=== PATIENT | male | born 1955 ===

== ENCOUNTER 2017-03-11 17:56 | Observation (INO) | payer OTHER ==
[2017-03-11] MEDS ORDERED: Labetalol 5mg/ml (4ml) IVP STA (18:05)
[2017-03-11] MEDS ORDERED: Labetalol 5mg/ml (4ml) ONE (18:10)
[2017-03-11 18:20] LABS: BASO % 0.4 % (0.0-2.0); EOS # 0.3 K/uL (0.0-0.7); EOS % 2.1 % (0.0-4.0); HEMATOCRIT 50.7 % (35.0-51.0); LYMPH % 23.8 % (20.0-40.0); MEAN CELL VOLUME 99.4 fl (80.0-94.0); MEAN CORPUSCULAR HGB CONC 33.3 g/dL (33.0-37.0); MEAN PLATELET VOLUME 7.7 fl (7.2-11.7); MONO # 0.8 K/uL (0.0-0.8); MONO % 6.6 % (0.0-10.0); NEUT # 8.5 K/uL (1.8-7.0); NEUT % 67.1 % (50.0-75.0); RED CELL DISTRIBUTION WIDTH 13.4 % (11.5-14.5); WHITE BLOOD COUNT 12.7 K/uL (4.8-10.8)
[2017-03-11 18:26] LABS: ALB/GLOB RATIO 1.3 (1.0-2.1); ALCOHOL SERUM < 10 mg/dl (0-10); ALKALINE PHOSPHATASE 116 U/L (38-126); ALT/SGPT 40 U/L (21-72); AST/SGOT 35 U/L (17-59); BILIRUBIN,TOTAL 0.6 mg/dl (0.2-1.3); BLOOD UREA NITROGEN 21 mg/dl (9-20); CALCIUM 9.3 mg/dL (8.4-10.2); CARBON DIOXIDE 23 mmol/L (22-30); CHLORIDE 104 mmol/L (98-107); GFR AFRICAN-AMERICAN > 60; GLUCOSE,RANDOM 106 mg/dL (75-110); SODIUM 139 mmol/l (132-148)
[2017-03-11 18:46] LABS: PARTIAL THROMBOPLASTIN TIME 31.3 Seconds (25.6-37.1)
--- NOTE | 2017-03-11 22:25 | ED PDOC ---
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 ALS called given mild confusion, evidence of head injury. Found to have marked hypertension 220/130 in field. Arrival to ED c/o headache, mild back pain w elevated BP in atrial fib. Patient denies known history of any medical problems, has not seen PMD in several years. Past Medical History Reviewed: Historical Data, Nursing Documentation, Vital Signs Vital Signs: Last Vital Signs Temp 98 F 03/11/17 17:58 Pulse 86 03/11/17 18:46 Resp 16 03/11/17 18:46 BP 150/88 03/11/17 18:46 Pulse Ox 99 03/11/17 18:46 - Medical History PMH: No Chronic Diseases - Surgical History Surgical History: Hernia Repair - Family History Family History: States: Unknown Family Hx - Social History Current smoker - smoking cessation education provided: No Alcohol: Occasional - Home Medications Home Medications: Ambulatory Orders Medication Instructions Recorded No Known Home Med 03/11/17 - Allergies Allergies/Adverse Reactions: Allergies Allergy/AdvReac Type Severity Reaction Status Date / Time No Known Allergies Allergy Verified 03/11/17 17:58 Review of Systems ROS Statement: Except As Marked, All Systems Reviewed And Found Negative Constitutional: Negative for: Fever, Chills Cardiovascular: Negative for: Chest Pain, Palpitations Respiratory: Negative for: Cough, Shortness of Breath Gastrointestinal: Negative for: Nausea, Vomiting, Abdominal Pain Genitourinary Male: Negative for: Dysuria, Frequency Musculoskeletal: Positive for: Arm Pain, Back Pain, Leg Pain Skin: Negative for: Rash, Lesions, Jaundice Neurological: Positive for: Altered Mental Status, Headache, Dizziness. Negative for: Weakness, Numbness Physical Exam - Reviewed Nursing Documentation Reviewed: Yes Vital Signs Reviewed: Yes - Physical Exam Appears: Positive for: Well, Non-toxic, No Acute Distress Head Exam: Positive for: NORMAL INSPECTION, NORMOCEPHALIC. Negative for: ATRAUMATIC (+facial contusions and R periorb edema/ecchymosis) Skin: Positive for: Normal Color, Warm, DRY Eye Exam: Positive for: EOMI, Normal appearance, PERRL ENT: Positive for: Normal ENT Inspection Neck: Positive for: Normal, Painless ROM Cardiovascular/Chest: Positive for: Regular Rate, Rhythm Respiratory: Positive for: CNT, Normal Breath Sounds Gastrointestinal/Abdominal: Positive for: Normal Exam, Bowel Sounds, Soft Back: Positive for: Normal Inspection Extremity: Positive for: Normal ROM Neurologic/Psych: Positive for: Alert, Oriented. Negative for: Motor/Sensory Deficits - Laboratory Results Result Diagrams: 03/11/17 18:07 03/11/17 18:07 - ECG ECG: Positive for: Interpreted By Me ECG Rhythm: Positive for: Atrial Fibrillation Interpretation Of ECG: Afib w RVR at 101bpm O2 Sat by Pulse Oximetry: 99 Pulse Ox Interpretation: Normal - Radiology X-Ray: Interpreted by Me, Read By Radiologist (CT brain/CSpine neg for bleed or fx) X-Ray Interpretation: Other (neg fracture or dislocation R shoulder/clavicle) Medical Decision Making Medical Decision Making: labetolol 10mg initiated for accelerated HTN and Afib w RVR Imaging, cardiac monitoring, bloodwork ordered pain medicine initiated labs reviewed CT brain and imaging reviewed BP improving in ED but remains elevated w Afib, will avoid ASA now given head and facial trauma. Admit Dr Phipps hospitalist tele Obs for new onset Afib, hypertensive urgency and head injury. Disposition - Clinical Impression Clinical Impression: Hypertensive urgency, Head injury, New onset atrial fibrillation - Patient ED Disposition Is Patient to be Admitted: Yes - Disposition Disposition Time: 20:25 Condition: FAIR - Pt Status Changed To: Hospital Disposition Of: Observation - POA Present On Arrival: Falls Or Trauma
--- NOTE | 2017-03-11 23:11 | CP.PCM.HP ---
History of Present Illness - History of Present Illness History of Present Illness: CC: Fall, new onset A fib HPI: This is a 52 y/o male with no diagnosed medical conditions (and no visit to MD in years) who is brought in by EMS after being found in a parking lot confused and with evidence of fall/head injury. He was brought in and found to have elevated BP to 220/130 and also A fib which appears to be new onset. The patient c/o GO and mild back pain. Patient denies CP/SOB/F/C/N/V/D. ROS: 14 point ROS negative other than HPI MHx: no prior medical conditions SHx: hernia Allergies: NKDA Medications: None Family Hx: Patient cannot provide any relevant information Social: Lives at home, states he smokes 'a few cigarettes' a day, occasional EtOH Surrogate: does not provide at this time Present on Admission - Present on Admission Any Indicators Present on Admission: No Past Patient History - Past Social History Alcohol: Occasional - PSYCHIATRIC Hx Substance Use: No Meds Allergies/Adverse Reactions: Allergies Allergy/AdvReac Type Severity Reaction Status Date / Time No Known Allergies Allergy Verified 03/11/17 17:58 Physical Exam - Constitutional Appears: No Acute Distress - Head Exam Head Exam: NORMOCEPHALIC Additional comments: ecchymoses on face/head - Eye Exam Eye Exam: EOMI, PERRL - ENT Exam ENT Exam: Mucous Membranes Moist - Neck Exam Neck exam: Positive for: Full Rom - Respiratory Exam Respiratory Exam: Clear to Auscultation Bilateral, NORMAL BREATHING PATTERN - Cardiovascular Exam Cardiovascular Exam: Irregular Rhythm, +S1, +S2 - GI/Abdominal Exam GI & Abdominal Exam: Hyperactive Bowel Sounds, Soft - Extremities Exam Extremities exam: Positive for: full ROM, normal inspection - Neurological Exam Neurological exam: Alert, CN II-XII Intact, Oriented x3 - Psychiatric Exam Psychiatric exam: Normal Affect, Normal Mood - Skin Skin Exam: Dry, Warm Results - Vital Signs Recent Vital Signs: Last Vital Signs Temp 98 F 03/11/17 17:58 Pulse 86 03/11/17 18:46 Resp 16 03/11/17 18:46 BP 150/88 03/11/17 18:46 Pulse Ox 99 03/11/17 22:43 - Labs Result Diagrams: 03/11/17 18:07 03/11/17 18:07 Labs: Laboratory Results - last 24 hr 03/11/17 03/11/17 03/11/17 18:07 18:07 18:07 WBC 12.7 H RBC 5.10 Hgb 16.9 Hct 50.7 MCV 99.4 H MCH 33.0 H MCHC 33.3 RDW 13.4 Plt Count 224 MPV 7.7 Neut % (Auto) 67.1 Lymph % (Auto) 23.8 [place] % (Auto) 6.6 Eos % (Auto) 2.1 Baso % (Auto) 0.4 Neut # 8.5 H Lymph # 3.0 Jasper # 0.8 Eos # 0.3 Baso # 0.0 PT 12.2 INR 1.1 APTT 31.3 Sodium 139 Potassium 4.0 Chloride 104 Carbon Dioxide 23 Anion Gap 16 BUN 21 H Creatinine 0.9 Est GFR ( Amer) > 60 Est GFR (Non-Af Amer) > 60 Random Glucose 106 Calcium 9.3 Total Bilirubin 0.6 AST 35 ALT 40 Alkaline Phosphatase 116 Troponin I 0.0250 Total Protein 8.0 Albumin 4.6 Globulin 3.4 Albumin/Globulin Ratio 1.3 Urine Opiates Screen Urine Methadone Screen Ur Barbiturates Screen Ur Phencyclidine Scrn Ur Amphetamines Screen U Benzodiazepines Scrn U Oth Cocaine Metabols U Cannabinoids Screen Alcohol, Quantitative < 10 03/11/17 21:45 WBC RBC Hgb Hct MCV MCH MCHC RDW Plt Count MPV Neut % (Auto) Lymph % (Auto) [place]asper % (Auto) Eos % (Auto) Baso % (Auto) Neut # Lymph # Jasper # Eos # Baso # PT INR APTT Sodium Potassium Chloride Carbon Dioxide Anion Gap BUN Creatinine Est GFR ( Amer) Est GFR (Non-Af Amer) Random Glucose Calcium Total Bilirubin AST ALT Alkaline Phosphatase Troponin I Total Protein Albumin Globulin Albumin/Globulin Ratio Urine Opiates Screen Negative Urine Methadone Screen Negative Ur Barbiturates Screen Negative Ur Phencyclidine Scrn Negative Ur Amphetamines Screen Negative U Benzodiazepines Scrn Negative U Oth Cocaine Metabols Negative U Cannabinoids Screen Negative Alcohol, Quantitative - EKG Data EKG Interpreted by: Myself Rate: Tachycardia - EKG Data EKG comments: A fib, controlled - Imaging and Cardiology CT scan - head Status: Report reviewed by me (WNL) Chest x-ray Status: Image reviewed by me (Poor inspiratory effort) Assessment & Plan (1) New onset atrial fibrillation Assessment and Plan: 61 y/o male admitted with fall, new onset AF with RVR and HTNsive urgency. 1) A fib with RVR -Serial trops -AM EKG -AM Echo -Will start metoprolol 25 q12h PO for rate control -No anticoag for now given recent fall and bleeding -Cardio consult in AM 2) HTNSive emergency -Serial trops as above -Labetolol 20 mg IV Q6h PRN for SBP > 190 3) Fall -- fall precautsions 4) DVT PPx -- SCDs only for now given falls Status: Acute (2) Head injury Status: Acute (3) Hypertensive urgency Status: Acute (4) DVT prophylaxis Status: Acute
[2017-03-11] MEDS ORDERED: Labetalol 5 mg/ml Inj 20ML IVP PRN (23:24)
[2017-03-12] MEDS ORDERED: Pneumococcal 23-Valent Vaccine IM ONE (07:00)
[2017-03-12] MEDS ORDERED: Influenza Vaccine 18yr & older 0.5 ML/45 MCG SYR IM ONE (07:00)
--- NOTE | 2017-03-12 08:50 | CT ---
PROCEDURE: CT HEAD WITHOUT CONTRAST. HISTORY: r/o ICH COMPARISON: None available. TECHNIQUE: Axial computed tomography images were obtained through the head/brain without intravenous contrast. Radiation dose: Total exam DLP = 885.2 MGy-cm. This CT exam was performed using one or more of the following dose reduction techniques: Automated exposure control, adjustment of the mA and/or kV according to patient size, and/or use of iterative reconstruction technique. FINDINGS: HEMORRHAGE: No intracranial hemorrhage. BRAIN: No mass effect or edema. Mild cerebral atrophy and mild chronic microvascular ischemic changes in the periventricular white matter. VENTRICLES: Unremarkable. No hydrocephalus. CALVARIUM: Minimally displaced nasal bone fractures. PARANASAL SINUSES: Unremarkable as visualized. No significant inflammatory changes. MASTOID AIR CELLS: Unremarkable as visualized. No inflammatory changes. OTHER FINDINGS: Right supraorbital scalp swelling/hematoma. IMPRESSION: No acute intracranial hemorrhage. Right frontal/ supraorbital soft tissue swelling/hematoma. Age-indeterminate nasal bone fractures.
--- NOTE | 2017-03-12 08:52 | CT ---
PROCEDURE: CT ORBITS WITHOUT CONTRAST. HISTORY: Facial trauma COMPARISON: None available. TECHNIQUE: Axial CT images of the orbits were obtained. Coronal and sagittal reformats were generated. Radiation dose: Total exam DLP = 791 mGy-cm. This CT exam was performed using one or more of the following dose reduction techniques: Automated exposure control, adjustment of the mA and/or kV according to patient size, and/or use of iterative reconstruction technique. FINDINGS: RIGHT ORBIT: RIGHT BONY ORBIT: Normal. RIGHT INTRAORBITAL STRUCTURES: Globe: Normal. Extraocular muscles: Normal. Post septal space: Normal. Optic Nerve: Normal. Lacrimal Apparatus: Normal. RIGHT PRESEPTAL SOFT TISSUES: Right frontal/supraorbital soft tissue swelling/hematoma. LEFT ORBIT: LEFT BONY ORBIT: Normal. LEFT INTRAORBITAL STRUCTURES: Globe: Normal. Extraocular muscles: Normal. Post septal space: Normal Optic Nerve: Normal. . Lacrimal Apparatus: Normal. LEFT PRESEPTAL SOFT TISSUES: Normal. OTHER: Minimally displaced nasal bone fractures. IMPRESSION: Right frontal/supraorbital soft tissue swelling/hematoma. Age-indeterminate minimally displaced nasal bone fractures.
--- NOTE | 2017-03-12 08:57 | CT ---
PROCEDURE: CT Cervical Spine without contrast HISTORY: trauma COMPARISON: None available. TECHNIQUE: Axial computed tomography images were obtained of the cervical spine without the use of intravenous contrast. Coronal and sagittal reformatted images were created and reviewed. Radiation dose: Total exam DLP = 500.4 MGy-cm. This CT exam was performed using one or more of the following dose reduction techniques: Automated exposure control, adjustment of the mA and/or kV according to patient size, and/or use of iterative reconstruction technique. FINDINGS: VERTEBRAE: Multilevel loss of vertebral body height. Ankylosis of C6 and C7. No fracture. Normal alignment. No destructive bony lesion. DISCS/SPINAL CANAL/NEURAL FORAMINA: Multilevel disc space narrowing with osteophytic ridging and disc osteophyte complexes. No significant spinal canal stenosis. PARASPINAL SOFT TISSUES: Unremarkable. OTHER FINDINGS: Biapical emphysema. IMPRESSION: Multilevel degenerative changes. No demonstrated fracture or dislocation.
--- NOTE | 2017-03-12 09:29 | RAD ---
HISTORY: fall COMPARISON: No prior. FINDINGS: LUNGS: No active pulmonary disease. PLEURA: No significant pleural effusion identified, no pneumothorax apparent. CARDIOVASCULAR: Atherosclerotic aortic calcifications. Cardiomediastinal silhouette enlarged. OSSEOUS STRUCTURES: Spinal degenerative changes. VISUALIZED UPPER ABDOMEN: Normal. OTHER FINDINGS: None. IMPRESSION: No active disease.
--- NOTE | 2017-03-12 09:30 | RAD ---
PROCEDURE: Radiographs of the right clavicle. HISTORY: fall COMPARISON: None. FINDINGS: RIGHT CLAVICLE: No fracture or focal lesion. JOINTS: Right acromioclavicular and glenohumeral joints are grossly unremarkable. SOFT TISSUES: Grossly unremarkable. OTHER FINDINGS: None. IMPRESSION: Normal radiographs of the right clavicle.
--- NOTE | 2017-03-12 09:31 | RAD ---
PROCEDURE: Radiographs of the Right Shoulder HISTORY: fall COMPARISON: No prior. FINDINGS: BONES: Normal. No fracture. JOINTS: Normal. Glenohumeral and acromioclavicular joints preserved. No osteoarthritis. SOFT TISSUES: Normal. OTHER FINDINGS: None. IMPRESSION: Normal radiographs of the right shoulder.
--- NOTE | 2017-03-12 09:32 | CP.PCM.CON ---
History of Present Illness - History of Present Illness History of Present Illness: This 61- year-old man was brought to the emergency room by emergency certified medical technician were summoned to a parking lot near patient's house. The patient left home to run errands in the dark and stumbled in the parking lot To his house where a guest room attendant witnessed his fall and called the ambulance. The patient remembers tripping and falling and remembers being brought to the emergency room. He indicates that he has no medical problems reseeding this fall and had not seen a physician for more than 6-7 years. He denies any palpitations or syncope or near syncope in the past. He appears to have a good effort tolerance in that he can walk up to 30 blocks and then walked Kenny 30 blocks back without any difficulty. He can climb couple flights of stairs without any difficulty. He does admit to smoking. Denies taking any recreational drugs or alcohol abuse. There is no significant past her family history. The patient now complains off pain in the right arm and right side of the face because of mechanical trauma is suffered during a fall. Physical examination shows a middle aged man quite alert awake and coherent. He has superficial injuries on the right side of his face including an ecchymotic area around his right eye. His respiratory rate was 14-16 breaths per minute with a heart rate of 78 bpm irregularly irregular. His blood pressure was 140/ 74 mmHg. His jugular venous pressure was not elevated and there was no edema over his lower extremities. His pedal pulses were feeble but distinct represent and there were no carotid bruits. Extremities were warm and nailbeds were pink there was no central or peripheral cyanosis. There was no clubbing. Mazama was not palpable. His first and second heart sounds were normal. There was a very brief apical systolic murmur. There was no gallop. There was wheezing audible all over his chest. There were no rales. His abdomen was soft liver and spleen are not palpable. His electrocardiogram showed atrial fibrillation with a right bundle branch block and left anterior hemiblock. Tiny Q waves were evident in leads V3 V4 and V5 there were not 0.4 ms wide. Labs were noted. Impression: Newly detected atrial fibrillation of uncertain duration. Possible COPD due to chronic cigarette use. Blunt facial trauma due to a fall. The patient will undergo an echocardiogram to evaluate his left ventricular systolic function. His heart rate appears well controlled. Anticoagulation following recent head injury will be avoided. He is hemodynamically stable. Past Patient History - Past Medical History & Family History Past Medical History?: No - Past Social History Smoking Status: Light Smoker < 10 Cigarettes Daily - CARDIAC Hx Cardiac Disorders: No - MUSCULOSKELETAL/RHEUMATOLOGICAL Hx Falls: Yes - PSYCHIATRIC Hx Substance Use: No - SURGICAL HISTORY Hx Herniorrhaphy: Yes - ANESTHESIA Hx Anesthesia: Yes Hx Anesthesia Reactions: No Meds Allergies/Adverse Reactions: Allergies Allergy/AdvReac Type Severity Reaction Status Date / Time No Known Allergies Allergy Verified 03/11/17 17:58 - Medications Medications: Current Medications Labetalol HCl (Trandate) 20 mg IVP Q6H PRN PRN Reason: for SBP > 180 Metoprolol Tartrate (Lopressor) 25 mg PO Q12 ALANA Last Admin: 03/12/17 09:02 Dose: 25 mg Results - Vital Signs Recent Vital Signs: Last Vital Signs Temp 97.1 F L 03/12/17 08:00 Pulse 82 03/12/17 09:02 Resp 20 03/12/17 08:00 BP 173/94 H 03/12/17 09:02 Pulse Ox 95 03/12/17 08:00 - Labs Result Diagrams: 03/11/17 18:07 03/11/17 18:07 Labs: Laboratory Results - last 24 hr 03/11/17 03/11/17 03/11/17 18:07 18:07 18:07 WBC 12.7 H RBC 5.10 Hgb 16.9 Hct 50.7 MCV 99.4 H MCH 33.0 H MCHC 33.3 RDW 13.4 Plt Count 224 MPV 7.7 Neut % (Auto) 67.1 Lymph % (Auto) 23.8 [place] % (Auto) 6.6 Eos % (Auto) 2.1 Baso % (Auto) 0.4 Neut # 8.5 H Lymph # 3.0 [place]gett # 0.8 Eos # 0.3 Baso # 0.0 PT 12.2 INR 1.1 APTT 31.3 Sodium 139 Potassium 4.0 Chloride 104 Carbon Dioxide 23 Anion Gap 16 BUN 21 H Creatinine 0.9 Est GFR ( Amer) > 60 Est GFR (Non-Af Amer) > 60 Random Glucose 106 Calcium 9.3 Total Bilirubin 0.6 AST 35 ALT 40 Alkaline Phosphatase 116 Troponin I 0.0250 Total Protein 8.0 Albumin 4.6 Globulin 3.4 Albumin/Globulin Ratio 1.3 Free T4 TSH 3rd Generation Urine Opiates Screen Urine Methadone Screen Ur Barbiturates Screen Ur Phencyclidine Scrn Ur Amphetamines Screen U Benzodiazepines Scrn U Oth Cocaine Metabols U Cannabinoids Screen Alcohol, Quantitative < 10 03/11/17 03/12/17 03/12/17 21:45 00:50 05:25 WBC RBC Hgb Hct MCV MCH MCHC RDW Plt Count MPV Neut % (Auto) Lymph % (Auto) [place] % (Auto) Eos % (Auto) Baso % (Auto) Neut # Lymph # [place] # Eos # Baso # PT INR APTT Sodium Potassium Chloride Carbon Dioxide Anion Gap BUN Creatinine Est GFR ( Amer) Est GFR (Non-Af Amer) Random Glucose Calcium Total Bilirubin AST ALT Alkaline Phosphatase Troponin I 0.0240 Total Protein Albumin Globulin Albumin/Globulin Ratio Free T4 TSH 3rd Generation 2.26 Urine Opiates Screen Negative Urine Methadone Screen Negative Ur Barbiturates Screen Negative Ur Phencyclidine Scrn Negative Ur Amphetamines Screen Negative U Benzodiazepines Scrn Negative U Oth Cocaine Metabols Negative U Cannabinoids Screen Negative Alcohol, Quantitative 03/12/17 05:25 WBC RBC Hgb Hct MCV MCH MCHC RDW Plt Count MPV Neut % (Auto) Lymph % (Auto) [place] % (Auto) Eos % (Auto) Baso % (Auto) Neut # Lymph # [place] # Eos # Baso # PT INR APTT Sodium Potassium Chloride Carbon Dioxide Anion Gap BUN Creatinine Est GFR ( Amer) Est GFR (Non-Af Amer) Random Glucose Calcium Total Bilirubin AST ALT Alkaline Phosphatase Troponin I Total Protein Albumin Globulin Albumin/Globulin Ratio Free T4 1.01 TSH 3rd Generation Urine Opiates Screen Urine Methadone Screen Ur Barbiturates Screen Ur Phencyclidine Scrn Ur Amphetamines Screen U Benzodiazepines Scrn U Oth Cocaine Metabols U Cannabinoids Screen Alcohol, Quantitative
[2017-03-12] MEDS ORDERED: Perflutren Lipid Microsphere 1.5 ML SUS IV ONE (10:04)
--- NOTE | 2017-03-12 12:04 | CARD ---
APPROVED REPORT EXAM: Two-dimensional and M-mode echocardiogram with Doppler, color Doppler with contrast. Other Information Quality : AverageRhythm : NSR Technically limited study due to Poor Parasternal Echo Window. INDICATION Atrial Fibrillation Echo Enhancing Agent Indication: Endocardial border delineation Agent/Amount Used: Definity M-Mode DIMENSIONS Left Atrium (MM)4.34 (2.5-4.0cm)Aortic Root2.94 (2.2-3.7cm) Aortic Cusp Exc.1.69 (1.5-2.0cm) Mitral Valve E/A ratio0.0 TDI E/Lateral E'0.0E/Medial E'0.0 LEFT VENTRICLE The left ventricle is normal size. There is normal left ventricular wall thickness. The systolic function is moderately impaired. The Ejection Fraction is 30-35%. There is global hypokinesis of the left ventricle. The left ventricular diastolic function is normal. RIGHT VENTRICLE The right ventricle is normal size. There is normal right ventricular wall thickness. The right ventricular systolic function is normal. ATRIA The left atrium size is normal. The right atrium size is normal. AORTIC VALVE The aortic valve is normal in structure. No aortic regurgitation is present. There is no aortic valvular stenosis. MITRAL VALVE The mitral valve is normal in structure. There is no mitral valve stenosis. There is no mitral valve regurgitation noted. TRICUSPID VALVE The tricuspid valve is normal in structure. There is no tricuspid valve regurgitation noted. There is no tricuspid valve stenosis. PULMONIC VALVE The pulmonary valve is normal in structure. There is no pulmonic valvular regurgitation. There is no pulmonic valvular stenosis. GREAT VESSELS The aortic root is normal in size. The IVC is normal in size and collapses >50% with inspiration. PERICARDIAL EFFUSION The pericardium appears normal. <Conclusion> The left ventricle is normal size. The systolic function is moderately impaired. The Ejection Fraction is 30-35%. There is global hypokinesis of the left ventricle.
--- NOTE | 2017-03-12 12:05 | CARD ---
APPROVED REPORT EKG Measurement Heart [id number] <Conclusion> Atrial fibrillation with rapid ventricular response Right bundle branch block Inferior infarct, age undetermined Possible Anterolateral infarct, age undetermined Abnormal ECG
--- NOTE | 2017-03-12 12:13 | CARD ---
APPROVED REPORT EKG Measurement Heart [id number] <Conclusion> Atrial fibrillation with a competing junctional pacemaker Right bundle branch block Cannot rule out Anterior infarct, age undetermined Abnormal ECG
--- NOTE | 2017-03-12 20:07 | CP.PCM.PN ---
Subjective - Date & Time of Evaluation Date of Evaluation: 03/12/17 Time of Evaluation: 10:30 - Subjective Subjective: Patient seen and examined . Sitting in chair in NAD. Complains of pain to his right shoulder and has decreased ROM due to pain. With right periorbital echymosis. States that tripped and fell yesterday and remembers everything. Denies any chest pain, SOB , palpitations Afib on monitor rate controlled Objective - Vital Signs/Intake and Output Vital Signs (last 24 hours): Temp Pulse Resp BP Pulse Ox 97.5 F L 87 18 168/76 H 97 03/12/17 16:21 03/12/17 16:21 03/12/17 16:21 03/12/17 16:21 03/12/17 16:21 Intake and Output: 03/12/17 03/13/17 18:59 06:59 Intake Total 600 Output Total 500 Balance 100 - Medications Medications: Current Medications Acetaminophen (Tylenol 325mg Tab) 650 mg PO Q6 PRN PRN Reason: Pain, Mild (1-3) Carvedilol (Coreg) 25 mg PO Q12 ALANA Enalapril Maleate (Vasotec) 10 mg PO DAILY ALANA Labetalol HCl (Trandate) 20 mg IVP Q6H PRN PRN Reason: for SBP > 180 Tramadol HCl (Ultram) 50 mg PO Q6 PRN PRN Reason: Pain, moderate (4-7) Tramadol HCl (Ultram) 100 mg PO Q6 PRN PRN Reason: Pain, severe (8-10) Last Admin: 03/12/17 18:14 Dose: 100 mg - Labs Labs: 03/11/17 18:07 03/11/17 18:07 PT 12.2 Seconds (9.8-13.1) 03/11/17 18:07 INR 1.1 (0.9-1.2) 03/11/17 18:07 APTT 31.3 Seconds (25.6-37.1) 03/11/17 18:07 - Constitutional Appears: Non-toxic, No Acute Distress - Head Exam Additional comments: right periorbital echymosis and frontal abrasion - Eye Exam Eye Exam: EOMI, PERRL Pupil Exam: NORMAL ACCOMODATION - ENT Exam ENT Exam: Mucous Membranes Moist, Normal Exam - Neck Exam Neck Exam: Full ROM, Normal Inspection - Respiratory Exam Respiratory Exam: Clear to Ausculation Bilateral, NORMAL BREATHING PATTERN. absent: Rales, Rhonchi, Wheezes, Respiratory Distress - Cardiovascular Exam Cardiovascular Exam: Irregular Rhythm, +S1, +S2. absent: JVD - GI/Abdominal Exam GI & Abdominal Exam: Soft, Normal Bowel Sounds. absent: Distended, Guarding, Tenderness, Rebound - Rectal Exam Rectal Exam: Deferred - Extremities Exam Extremities Exam: Full ROM, Normal Capillary Refill, Normal Inspection. absent : Calf Tenderness, Pedal Edema - Back Exam Back Exam: NORMAL INSPECTION - Neurological Exam Neurological Exam: Alert, Awake, CN II-XII Intact, Oriented x3 - Psychiatric Exam Psychiatric exam: Normal Affect - Skin Skin Exam: Dry, Normal Color, Warm Assessment and Plan - Assessment and Plan (Free Text) Assessment: 61-year-old man smoker with no significant PMH , has not seen a physician in a long time was brought in for evaluation after fall for confusiomn. patient states that he tripped and fell and remembers everything . In er he was found to be in AFib . Imaging showed no acute intracranial pathology no fractures patoientg admitted in telemetry and cardiology consulted 1. New onset afib continue tele monitor trop x3 negative TSH - wnl cardiology consult appreciated on BB for rate control Echo showed EF 30-35 5 with global hypokinesis Started Enalapril 10 mg po daily and Coreg 25 mg po q12 Hold off anticoagulation for now due to head trauma 2. Hypertensive emergency Presented with SBP Started on Coreg and enalapril Check Lipid profile 3. Fall with facial and let side trauma imaging showed no fracture CT head and neck showed no acute pathology pain management PT eval 4. DVT prophylaxis SCD no anticoagulation
[2017-03-13 07:36] LABS: HEMATOCRIT 47.7 % (35.0-51.0); MEAN CELL VOLUME 99.2 fl (80.0-94.0); MEAN CORPUSCULAR HEMOGLOBIN 33.3 pg (27.0-31.0); MEAN CORPUSCULAR HGB CONC 33.5 g/dL (33.0-37.0); RED CELL DISTRIBUTION WIDTH 13.6 % (11.5-14.5)
[2017-03-13 07:40] LABS: BLOOD UREA NITROGEN 22 mg/dl (9-20); CALCIUM 8.7 mg/dL (8.4-10.2); CARBON DIOXIDE 25 mmol/L (22-30); CHLORIDE 105 mmol/L (98-107); CHOLESTEROL 209 mg/dL (0-199); GFR AFRICAN-AMERICAN > 60; GLUCOSE,RANDOM 125 mg/dL (75-110); POTASSIUM 4.3 MMOL/L (3.6-5.0); SODIUM 137 mmol/l (132-148)
[2017-03-13 13:07] VITALS: BP 95/57; PULSE 76; RESP 18; TEMP 98.4; O2SAT 93
--- NOTE | 2017-03-13 14:26 | CP.PCM.DIS ---
Provider - Provider Date of Admission: 03/11/17 22:20 Attending physician: Laurie Phipps MD Primary care physician: None Consults: cardiology consult Time Spent in preparation of Discharge (in minutes): 15 Hospital Course - Lab Results Lab Results: Most Recent Lab Values WBC 13.0 K/uL (4.8-10.8) H 03/13/17 05:20 RBC 4.81 Mil/uL (4.40-5.90) 03/13/17 05:20 Hgb 16.0 g/dL (12.0-18.0) 03/13/17 05:20 Hct 47.7 % (35.0-51.0) 03/13/17 05:20 MCV 99.2 fl (80.0-94.0) H 03/13/17 05:20 MCH 33.3 pg (27.0-31.0) H 03/13/17 05:20 MCHC 33.5 g/dL (33.0-37.0) 03/13/17 05:20 RDW 13.6 % (11.5-14.5) 03/13/17 05:20 Plt Count 197 K/uL (130-400) 03/13/17 05:20 MPV 7.7 fl (7.2-11.7) 03/11/17 18:07 Neut % (Auto) 67.1 % (50.0-75.0) 03/11/17 18:07 Lymph % (Auto) 23.8 % (20.0-40.0) 03/11/17 18:07 [place] % (Auto) 6.6 % (0.0-10.0) 03/11/17 18:07 Eos % (Auto) 2.1 % (0.0-4.0) 03/11/17 18:07 Baso % (Auto) 0.4 % (0.0-2.0) 03/11/17 18:07 Neut # 8.5 K/uL (1.8-7.0) H 03/11/17 18:07 Lymph # 3.0 K/uL (1.0-4.3) 03/11/17 18:07 [place] # 0.8 K/uL (0.0-0.8) 03/11/17 18:07 Eos # 0.3 K/uL (0.0-0.7) 03/11/17 18:07 Baso # 0.0 K/uL (0.0-0.2) 03/11/17 18:07 PT 12.2 Seconds (9.8-13.1) 03/11/17 18:07 INR 1.1 (0.9-1.2) 03/11/17 18:07 APTT 31.3 Seconds (25.6-37.1) 03/11/17 18:07 Sodium 137 mmol/l (132-148) 03/13/17 05:20 Potassium 4.3 MMOL/L (3.6-5.0) 03/13/17 05:20 Chloride 105 mmol/L (98-107) 03/13/17 05:20 Carbon Dioxide 25 mmol/L (22-30) 03/13/17 05:20 Anion Gap 11 (10-20) 03/13/17 05:20 BUN 22 mg/dl (9-20) H 03/13/17 05:20 Creatinine 1.0 mg/dl (0.8-1.5) 03/13/17 05:20 Est GFR ( Amer) > 60 03/13/17 05:20 Est GFR (Non-Af Amer) > 60 03/13/17 05:20 Random Glucose 125 mg/dL (75-110) H 03/13/17 05:20 Calcium 8.7 mg/dL (8.4-10.2) 03/13/17 05:20 Total Bilirubin 0.6 mg/dl (0.2-1.3) 03/11/17 18:07 AST 35 U/L (17-59) 03/11/17 18:07 ALT 40 U/L (21-72) 03/11/17 18:07 Alkaline Phosphatase 116 U/L (38-126) 03/11/17 18:07 Troponin I 0.0210 ng/mL (0.00-0.120) 03/12/17 09:03 Total Protein 8.0 G/DL (6.3-8.2) 03/11/17 18:07 Albumin 4.6 g/dL (3.5-5.0) 03/11/17 18:07 Globulin 3.4 gm/dL (2.2-3.9) 03/11/17 18:07 Albumin/Globulin Ratio 1.3 (1.0-2.1) 03/11/17 18:07 Triglycerides 105 mg/DL (0-149) 03/13/17 05:20 Cholesterol 209 mg/dL (0-199) H 03/13/17 05:20 LDL Cholesterol Direct 144 mg/dL (0-129) H 03/13/17 05:20 HDL Cholesterol 49 MG/DL (30-70) 03/13/17 05:20 Free T4 1.01 ng/dL (0.78-2.19) 03/12/17 05:25 TSH 3rd Generation 2.26 mIU/ML (0.46-4.68) 03/12/17 05:25 Urine Opiates Screen Negative (NEGATIVE) 03/11/17 21:45 Urine Methadone Screen Negative (NEGATIVE) 03/11/17 21:45 Ur Barbiturates Screen Negative (NEGATIVE) 03/11/17 21:45 Ur Phencyclidine Scrn Negative (NEGATIVE) 03/11/17 21:45 Ur Amphetamines Screen Negative (NEGATIVE) 03/11/17 21:45 U Benzodiazepines Scrn Negative (NEGATIVE) 03/11/17 21:45 U Oth Cocaine Metabols Negative (NEGATIVE) 03/11/17 21:45 U Cannabinoids Screen Negative (NEGATIVE) 03/11/17 21:45 Alcohol, Quantitative < 10 mg/dl (0-10) 03/11/17 18:07 - Hospital Course Hospital Course: 61-year-old man smoker with no significant PMH , has not seen a physician in a long time was brought in for evaluation after fall with multiple trauma and for confusion. Patient states that he tripped and fell and that he remembers everything . In ER he was found to be in AFib . Imaging showed no acute intracranial pathology and no fractures to his neck , arm , shoulder , clavicle. Patient admitted in telemetry and cardiology consulted . He remained afib on monitor rate controlled His BP was found to be very elevated so he was started on antihypertensives . Troponins were cycled and were x 3 negative Echo showed global hypokinesis and EF 30-35 % . Patient denies any active chest pain or SOB. Acute HI is ruled out . His BP meds were changed to coreg 25 mg po BID and enalapril 10 mg po QD. BP at present is better controlled. Will discharge patient home with close follow up with [facility] and line tender . Due to his head trauma with echymosis will not anticoagulation at present. Will give ASA 81 mg PO daily Started on Atorvastatin for Dyslipidemia Patient is hemodynamically stable, afib on monitor rate controlled. Will discharge patient home Advise to follow up with [facility] in 1week. Stress test as outpatient counselled on smoking cessation , diet , exercise and compliance with medications. 1. New onset afib rate controlled trop x3 negative TSH - wnl cardiology consult appreciated on BB for rate control Echo showed EF 30-35 % with global hypokinesis Started Enalapril 10 mg po daily and Coreg 25 mg po q12 Hold off anticoagulation for now due to head trauma 2. Hypertensive emergency Presented with SBP 221 Started on Coreg and enalapril 3. Fall with facial and right side trauma imaging showed no fracture CT head and neck showed no acute pathology pain management with ultarm P{RN 4. Dyslipidemia started atorvastatin 5. DVT prophylaxis SCD no anticoagulation Discharge Exam - Head Exam Head Exam: NORMOCEPHALIC Additional comments: right frontal hematoma - Eye Exam Eye Exam: EOMI, PERRL Pupil Exam: NORMAL ACCOMODATION - ENT Exam ENT Exam: Mucous Membranes Moist, Normal Exam - Neck Exam Neck exam: Full Rom, Normal Inspection - Respiratory Exam Respiratory Exam: Clear to PA & Lateral, Rhonchi, NORMAL BREATHING PATTERN. absent: Rales, Wheezes, Respiratory Distress - Cardiovascular Exam Cardiovascular Exam: Irregular Rhythm, +S1, +S2. absent: JVD - GI/Abdominal Exam GI & Abdominal Exam: Normal Bowel Sounds, Soft. absent: Distended, Guarding, Rebound, Tenderness - Rectal Exam Rectal Exam: Deferred - Extremities Exam Extremities exam: normal inspection, tenderness (to right shoulder , decresaed ROM ) - Back Exam Back exam: NORMAL INSPECTION. absent: tenderness, vertebral tenderness - Neurological Exam Neurological exam: Alert, CN II-XII Intact, Oriented x3, Reflexes Normal - Psychiatric Exam Psychiatric exam: Normal Affect, Normal Mood - Skin Skin Exam: Dry, Normal Color, Warm Discharge Plan - Discharge Medications Prescriptions: Atorvastatin [Lipitor] 20 mg PO DAILY #30 tab Carvedilol [Coreg] 25 mg PO Q12 #60 tab Enalapril Maleate [Vasotec] 10 mg PO DAILY #30 tab traMADol [Ultram] 50 mg PO Q6 PRN #20 tab PRN Reason: Pain, Severe (8-10) - Follow Up Plan Condition: STABLE Disposition: HOME/ ROUTINE Patient education suggested?: Yes Instructions: Chronic Hypertension (DC), Heart Failure (DC), Atrial Fibrillation (DC) Referrals: [facility] [place] [Outside]
== END 2017-03-13 16:05 | disposition home or self-care (01) ==
LOC: H.ER 17:56 → H.ERHOLD 22:20 → H.TEL 03-12 00:15
PROVIDERS: ADMIT Internal Medicine; ATTEND Internal Medicine
DX: I48.91 Unspecified atrial fibrillation (principal); I16.1 Hypertensive emergency; Z23 Encounter for immunization; S09.90XA Unspecified injury of head, initial encounter; W01.0XXA Fall on same level from slipping, tripping and stumbling without subsequent striking against object, initial encounter; Y92.481 Parking lot as the place of occurrence of the external cause; F17.210 Nicotine dependence, cigarettes, uncomplicated; M25.511 Pain in right shoulder
CPT/HCPCS: 36415; 70450; 70480; 71010; 72125; 73000; 73030; 80048; 80053; 80061; 80320; 80324; 80345; 80346; 80349; 80353; 80358; 80361; 83992; 84439; 84443; 84484; 85025; 85027; 85610; 85730; 90471; 90732; 93005; 93306; 96374; 97116; 97161; 97530; 99285; G0378; G8978; G8979; Q2035